=== PATIENT | female | born 1945 | race Caucasian/White ===

== ENCOUNTER 2016-12-22 10:35 | Outpatient (CLI) | payer BC, MEDICARE | END 2016-12-22 10:36 | disposition home or self-care (01) | DX: J02.9 Acute pharyngitis, unspecified (principal) ==

== ENCOUNTER 2017-07-17 10:57 | Outpatient (CLI) | payer MEDICARE ==
[2017-07-17 11:32] LABS: BASOPHILS # (AUTO) 0.1 10^3/uL (0.0-0.1); EOSINOPHILS # (AUTO) 0.2 10^3/uL (0.0-0.7); EOSINOPHILS % (AUTO) 2.8 %; HCT - HEMATOCRIT 36.7 % (37.0-47.0); HGB - HEMOGLOBIN 12.2 g/dL (12.0-16.0); LYMPHOCYTES # (AUTO) 1.9 10^3/uL (1.5-3.5); LYMPHOCYTES % (AUTO) 33.4 %; MEAN CORPUSCULAR HGB CONC 33.3 g/dL (32.0-36.0); MEAN CORPUSCULAR VOLUME 90.1 fL (81.0-99.0); MEAN PLATELET VOLUME 7.4 fL (7.9-10.8); MONOCYTES # (AUTO) 0.5 10^3/uL (0.0-1.0); MONOCYTES % (AUTO) 8.5 %; NEUTROPHILS # (AUTO) 3.2 10^3/uL (1.5-6.6); NEUTROPHILS % (AUTO) 54.3 %; RED BLOOD COUNT 4.08 10^6/uL (4.20-5.40); RED CELL DISTRIBUTION WIDTH 13.9 % (12.0-15.0); UNCORRECTED WHITE BLOOD COUNT 5.8 x10^3/uL; WHITE BLOOD COUNT 5.8 x10^3/uL (4.8-10.8)
[2017-07-17 11:50] LABS: ALBUMIN/GLOBULIN RATIO 1.3 (1.0-2.2); BILIRUBIN,TOTAL 0.8 mg/dL (0.2-1.0); BUN - BLOOD UREA NITROGEN 17 mg/dL (6-20); CALCIUM 9.4 mg/dL (8.5-10.3); CARBON DIOXIDE - CO2 27 mmol/L (21-32); CHLORIDE 104 mmol/L (101-111); CHOL/HDL RATIO 4.2 (<4.4); CHOLESTEROL 262 mg/dL; CREATININE 1.1 mg/dL (0.4-1.0); GFR - MDRD 49 (>89); GLUCOSE 99 mg/dL (70-100); HDL CHOLESTEROL 62 mg/dL; LDL/HDL RATIO 2.9 (<4.4); POTASSIUM 4.4 mmol/L (3.5-5.0); SODIUM 139 mmol/L (135-145); TOTAL PROTEIN 7.2 g/dL (6.7-8.2); TRIGLYCERIDES 109 mg/dL; VLDL CHOLESTEROL 22 mg/dL
== END 2017-07-17 10:58 | disposition home or self-care (01) ==
LOC: LAB 10:57
PROVIDERS: ATTEND Internal Medicine
DX: M47.9 Spondylosis, unspecified (principal); E78.5 Hyperlipidemia, unspecified; J45.909 Unspecified asthma, uncomplicated; E03.9 Hypothyroidism, unspecified
CPT/HCPCS: 36415; 80053; 80061; 84443; 85025

== ENCOUNTER 2017-07-22 12:34 | Outpatient (CLI) | payer MEDICARE ==
--- NOTE | 2017-07-23 11:32 | Mammography Report ---
DIGITAL BILATERAL SCREENING MAMMOGRAPHY: 07/22/2017 COMPARISON: 07/22/2016, 07/13/2015, 06/30/2014, 06/22/2013, 05/18/2012, 05/08/2011, 03/07/2010, 06/2009, and 01/28/2008. TECHNIQUE: Bilateral digital CC and MLO projections. FINDINGS: Scattered fibroglandular densities are present. No dominant mass, architectural distortio n, skin thickening, suspicious microcalcifications, or interval change. IMPRESSION: NEGATIVE. BIRADS CATEGORY 1. SUGGEST ROUTINE FOLLOWUP IN 12 MONTHS. STANDARD QUALIFYING STATEMENTS 1. This examination was reviewed with the aid of Computer-Aided Detection (CAD). 2. A negative or benign imaging report should not delay biopsy if clinically suspicious findings are present. Consider surgical consultation if warranted. More than 5% of cancers are not identified by i maging. 3. Dense breasts may obscure an underlying neoplasm. JOB #: [id number] EXT JOB #:[id number]
== END 2017-07-22 12:35 | disposition home or self-care (01) ==
LOC: DI 12:34
PROVIDERS: ATTEND Internal Medicine
DX: Z12.31 Encounter for screening mammogram for malignant neoplasm of breast (principal)
CPT/HCPCS: 77067

== ENCOUNTER 2018-02-25 09:11 | Outpatient (CLI) | payer MEDICARE ==
--- NOTE | 2018-02-25 14:31 | XRAY Report ---
TWO VIEW CHEST: 02/25/2018 CLINICAL INDICATION: Viral upper respiratory infection, asthma, weakness, cough, pain. COMPARISON: Two view chest 01/06/2014, chest CT 11/21/2014. FINDINGS: Frontal and lateral views of the chest demonstrate a normal cardiac silhouette. The lungs are clear. No infiltrate, effusion, or pneumothorax is seen. IMPRESSION: NORMAL CHEST, UNCHANGED. TD: 02/25/2018 14:30
== END 2018-02-25 09:12 | disposition home or self-care (01) ==
LOC: DI 09:11
PROVIDERS: ATTEND Internal Medicine
DX: J06.9 Acute upper respiratory infection, unspecified (principal); J45.909 Unspecified asthma, uncomplicated
CPT/HCPCS: 71046

== ENCOUNTER 2018-07-27 10:47 | Outpatient (CLI) | payer MEDICARE ==
[2018-07-27 17:51] LABS: BASOPHILS % (AUTO) 0.7 %; EOSINOPHILS # (AUTO) 0.1 10^3/uL (0.0-0.7); EOSINOPHILS % (AUTO) 2.2 %; HGB - HEMOGLOBIN 12.5 g/dL (12.0-16.0); LYMPHOCYTES # (AUTO) 1.8 10^3/uL (1.5-3.5); LYMPHOCYTES % (AUTO) 29.8 %; MEAN CORPUSCULAR HEMOGLOBIN 30.3 pg (27.0-31.0); MEAN CORPUSCULAR HGB CONC 33.6 g/dL (32.0-36.0); MEAN CORPUSCULAR VOLUME 90.3 fL (81.0-99.0); MEAN PLATELET VOLUME 9.6 fL (7.9-10.8); MONOCYTES # (AUTO) 0.5 10^3/uL (0.0-1.0); MONOCYTES % (AUTO) 8.5 %; NEUTROPHILS # (AUTO) 3.6 10^3/uL (1.5-6.6); NEUTROPHILS % (AUTO) 58.8 %; PLT - PLATELET COUNT 328 10^3/uL (130-450); RED BLOOD COUNT 4.11 10^6/uL (4.20-5.40); RED CELL DISTRIBUTION WIDTH 14.1 % (12.0-15.0); WHITE BLOOD COUNT 6.1 x10^3/uL (4.8-10.8)
[2018-07-27 18:25] LABS: ALBUMIN 4.2 g/dL (3.2-5.5); ALBUMIN/GLOBULIN RATIO 1.4 (1.0-2.2); ALKALINE PHOSPHATASE 57 IU/L (42-121); ALT ALANINE AMINOTRANSFERASE 16 IU/L (10-60); AST ASPARTATE AMINOTRANSFERASE 19 IU/L (10-42); BILIRUBIN,TOTAL 0.9 mg/dL (0.2-1.0); BUN - BLOOD UREA NITROGEN 16 mg/dL (6-20); CALCIUM 9.5 mg/dL (8.5-10.3); CARBON DIOXIDE - CO2 27 mmol/L (21-32); CHLORIDE 104 mmol/L (101-111); CHOL/HDL RATIO 3.6 (<4.4); CHOLESTEROL 246 mg/dL; GFR - MDRD 55 (>89); GLUCOSE 92 mg/dL (70-100); HDL CHOLESTEROL 68 mg/dL; LDL CHOLESTEROL,CALCULATED 151 mg/dL; LDL/HDL RATIO 2.2 (<4.4); SODIUM 139 mmol/L (135-145); TOTAL PROTEIN 7.1 g/dL (6.7-8.2); VLDL CHOLESTEROL 27 mg/dL
== END 2018-07-27 10:48 | disposition home or self-care (01) ==
LOC: LAB.F 10:47
PROVIDERS: ATTEND Internal Medicine
DX: E78.5 Hyperlipidemia, unspecified (principal); M81.0 Age-related osteoporosis without current pathological fracture; J45.909 Unspecified asthma, uncomplicated; E03.9 Hypothyroidism, unspecified
CPT/HCPCS: 36415; 80053; 80061; 83721; 84443; 85025

== ENCOUNTER 2018-09-15 10:36 | Outpatient (CLI) | payer MEDICARE ==
--- NOTE | 2018-09-15 17:20 | DEXA Report ---
Reason: OSTEOPOROSIS, SCREENING MAMMO Procedure Date: 09/15/2018 Accession Number: [id number] / [id number] Procedure: DEX - Dexa Spine and/or Hip CPT Code: FULL RESULT: EXAM: Dexa Spine and/or Hip DATE: 09/15/2018 11:05 AM CLINICAL HISTORY: OSTEOPOROSIS, SCREENING MAMMO TECHNIQUE: Dual energy x-ray absorptiometry (DXA) was performed on a Quick TV System. Regions measured are the AP Spine, femoral neck, and if needed forearm. COMPARISON: None. In accordance with the International Society for Clinical Densitometry (ISCD) guidelines, data from previous exams may be reanalyzed using current recommendations and techniques. This is done to allow a more accurate basis for comparison with the current study. FINDINGS: The data for the lumbar spine is as follows: BMD (g/cm/cm) T-SCORE Z-SCORE REGION L1 0.732 -3.3 -1.8 L2 0.711 -4.1 -2.6 L3 0.684 -4.3 -2.8 L4 0.780 -3.5 -2.0 TOTAL 0.728 -3.8 -2.3 NOTE: All evaluable vertebrae are used for classification The data for the hip is as follows: BMD (g/cm/cm) T-SCORE Z-SCORE REGION Neck 0.776 -1.9 -0.2 TOTAL 0.740 -2.1 -0.7 NOTE: The femoral neck or total proximal femur, whichever is lowest, is used for classification. DXA RESULTS SUMMARY: Spine SCAN DATE AGE BMD CHANGE VS CHANGE VS PREVIOUS PREVIOUS % 09/15/2018 [age] 0.728 -0.015 -2.0 09/02/2016 [age] 0[age]743 * Denotes significant change at the 95% confidence level. Denotes dissimilar scan types or analysis methods. DXA RESULTS SUMMARY: Hip SCAN DATE AGE BMD CHANGE VS CHANGE VS PREVIOUS PREVIOUS % 09/15/2018 73.4 0.740 -0.003 -0.4 09/02/2016 71.3 0.743 * Denotes significant change at the 95% confidence level. Denotes dissimilar scan types or analysis methods. IMPRESSION: THE WHO CLASSIFICATION BASED ON THE INTERNATIONAL REFERENCE STANDARD IS OSTEOPOROSIS. THE FRACTURE RISK IS HIGH. RECOMMENDATION: Patients with diagnosis of osteoporosis or osteopenia should have regular bone mineral density assessment. For those eligible for Medicare, routine testing is allowed once every 2 years. Testing frequency can be increased for patients who have rapidly progressing disease or for those who are receiving medical therapy to restore bone mass. COMMENT: World Health Organization (WHO) definitions for osteoporosis and osteopenia: NORMAL BMD: T-score at -1.0 or higher, fracture risk is low OSTEOPENIA BMD: T-score between -1.0 and -2.5, fracture risk is increased. OSTEOPOROSIS BMD: T-score at -2.5 or lower, fracture risk is high. National Osteoporosis Foundation recommends: 1. Obtain adequate dietary calcium (at least 1200 mg per day) and vitamin D (400-800 international units per day). 2. Participate, as appropriate, in regular weightbearing and muscle-strengthening exercise. 3. Avoid tobacco use and reduce alcohol and caffeine intake. 4. For more detailed information see the website at www.NOF.org.
== END 2018-09-15 10:37 | disposition home or self-care (01) ==
LOC: DI 10:36
PROVIDERS: ATTEND Internal Medicine
DX: M81.0 Age-related osteoporosis without current pathological fracture (principal); Z78.0 Asymptomatic menopausal state
CPT/HCPCS: 77080

== ENCOUNTER 2018-09-20 11:25 | Outpatient (CLI) | payer MEDICARE ==
--- NOTE | 2018-09-21 09:09 | Mammography Report ---
Reason: ANNUAL SCREENING Procedure Date: 09/20/2018 Accession Number: [id number] / [id number] Procedure: MARIA ISABEL - Screening Mammo w/Crow CPT Code: FULL RESULT: EXAM: Screening Mammo w/Crow DATE: 09/20/2018 12:37 PM CLINICAL HISTORY: 73-year-old female with history of biopsy in 1999 and family history of breast cancer in the mother in her 70s. The patient is here for screening. TECHNIQUE: Bilateral CC and MLO views were obtained. COMPARISON: 07/22/2017, 07/22/2016, 07/13/2015, 06/30/2014. FINDINGS: The breasts demonstrate diffuse fatty replacement bilaterally. There are typically benign coarse right breast calcifications. No suspicious masses, clustered microcalcifications, or regions of architectural distortion are identified. IMPRESSION: Benign findings RECOMMENDATION: Routine annual screening unless otherwise clinically indicated. BIRADS CATEGORY 2: Benign findings STANDARD QUALIFYING STATEMENTS: 1. This examination was not reviewed with the aid of Computer-Aided Detection (CAD). 2. A negative or benign imaging report should not delay biopsy if clinically suspicious findings are present. Consider surgical consultation if warranted. More than 5% of cancers are not identified by imaging. 3. Dense breasts may obscure an underlying neoplasm. 4. This examination was reviewed with the aid of 3D breast imaging (tomosynthesis).
== END 2018-09-20 11:26 | disposition home or self-care (01) ==
LOC: DI 11:25
PROVIDERS: ATTEND Internal Medicine
DX: Z12.31 Encounter for screening mammogram for malignant neoplasm of breast (principal); Z80.3 Family history of malignant neoplasm of breast
CPT/HCPCS: 77063; 77067

== ENCOUNTER 2019-05-16 14:33 | Outpatient (CLI) | payer MEDICARE ==
[2019-05-16 15:20] LABS: BASOPHILS # (AUTO) 0.1 10^3/uL (0.0-0.1); BASOPHILS % (AUTO) 0.7 %; EOSINOPHILS # (AUTO) 0.2 10^3/uL (0.0-0.7); EOSINOPHILS % (AUTO) 3.4 %; HGB - HEMOGLOBIN 11.4 g/dL (12.0-16.0); LYMPHOCYTES # (AUTO) 2.4 10^3/uL (1.5-3.5); LYMPHOCYTES % (AUTO) 33.5 %; MEAN CORPUSCULAR HEMOGLOBIN 31.8 pg (27.0-31.0); MEAN CORPUSCULAR HGB CONC 31.5 g/dL (32.0-36.0); MEAN CORPUSCULAR VOLUME 101.1 fL (81.0-99.0); MEAN PLATELET VOLUME 9.9 fL (7.9-10.8); MONOCYTES # (AUTO) 0.7 10^3/uL (0.0-1.0); MONOCYTES % (AUTO) 9.1 %; NEUTROPHILS # (AUTO) 3.8 10^3/uL (1.5-6.6); PLT - PLATELET COUNT 292 10^3/uL (130-450); RED BLOOD COUNT 3.58 10^6/uL (4.20-5.40); RED CELL DISTRIBUTION WIDTH 13.3 % (12.0-15.0); WHITE BLOOD COUNT 7.1 x10^3/uL (4.8-10.8)
[2019-05-16 15:21] LABS: ALBUMIN 4.1 g/dL (3.2-5.5); ALBUMIN/GLOBULIN RATIO 1.4 (1.0-2.2); BILIRUBIN,TOTAL 0.4 mg/dL (0.2-1.0); CALCIUM 9.3 mg/dL (8.5-10.3); TOTAL PROTEIN 7.1 g/dL (6.7-8.2)
[2019-05-16 15:56] LABS: THYROID STIMULATING HORMONE 0.89 uIU/mL (0.34-5.60)
[2019-05-16 15:59] LABS: FREE T4 (FREE THYROXINE) 1.16 ng/dL (0.58-1.64)
== END 2019-05-16 14:34 | disposition home or self-care (01) ==
LOC: LAB 14:33
PROVIDERS: ATTEND Family Medicine
DX: G56.00 Carpal tunnel syndrome, unspecified upper limb (principal); E03.9 Hypothyroidism, unspecified; J45.998 Other asthma
CPT/HCPCS: 36415; 80053; 84439; 84443; 84481; 85025

== ENCOUNTER 2019-08-29 14:05 | Outpatient (CLI) | payer MEDICARE | END 2019-08-29 23:59 | disposition home or self-care (01) | LOC: LAB.R 14:05 | PROVIDERS: ATTEND Family Medicine | DX: E78.5 Hyperlipidemia, unspecified (principal); R00.2 Palpitations; E03.9 Hypothyroidism, unspecified; N39.0 Urinary tract infection, site not specified | CPT/HCPCS: 87077; 87086; 87181 ==

== ENCOUNTER 2019-08-29 15:19 | Outpatient (CLI) | payer MEDICARE ==
[2019-08-29 15:49] LABS: BASOPHILS # (AUTO) 0.1 10^3/uL (0.0-0.1); BASOPHILS % (AUTO) 0.7 %; EOSINOPHILS # (AUTO) 0.2 10^3/uL (0.0-0.7); HGB - HEMOGLOBIN 11.6 g/dL (12.0-16.0); LYMPHOCYTES # (AUTO) 2.9 10^3/uL (1.5-3.5); LYMPHOCYTES % (AUTO) 37.8 %; MEAN CORPUSCULAR HEMOGLOBIN 32.7 pg (27.0-31.0); MEAN CORPUSCULAR HGB CONC 31.9 g/dL (32.0-36.0); MEAN CORPUSCULAR VOLUME 102.5 fL (81.0-99.0); MEAN PLATELET VOLUME 9.7 fL (7.9-10.8); MONOCYTES # (AUTO) 0.7 10^3/uL (0.0-1.0); MONOCYTES % (AUTO) 9.1 %; NEUTROPHILS # (AUTO) 3.7 10^3/uL (1.5-6.6); NEUTROPHILS % (AUTO) 49.1 %; PLT - PLATELET COUNT 327 10^3/uL (130-450); RED BLOOD COUNT 3.55 10^6/uL (4.20-5.40); RED CELL DISTRIBUTION WIDTH 13.4 % (12.0-15.0); WHITE BLOOD COUNT 7.6 x10^3/uL (4.8-10.8)
[2019-08-29 16:05] LABS: ALBUMIN 4.2 g/dL (3.2-5.5); ALBUMIN/GLOBULIN RATIO 1.4 (1.0-2.2); BILIRUBIN,TOTAL 0.6 mg/dL (0.2-1.0); CALCIUM 9.5 mg/dL (8.5-10.3); TOTAL PROTEIN 7.3 g/dL (6.7-8.2)
[2019-08-29 16:37] LABS: THYROID STIMULATING HORMONE 0.72 uIU/mL (0.34-5.60)
[2019-08-29 16:39] LABS: FREE T4 (FREE THYROXINE) 1.19 ng/dL (0.58-1.64)
== END 2019-08-29 15:20 | disposition home or self-care (01) ==
LOC: LAB 15:19
PROVIDERS: ATTEND Family Medicine
DX: E78.5 Hyperlipidemia, unspecified (principal); R00.2 Palpitations; N39.0 Urinary tract infection, site not specified; E03.9 Hypothyroidism, unspecified
CPT/HCPCS: 36415; 80053; 84439; 84443; 84481; 85025; 87086

== ENCOUNTER 2019-10-06 10:47 | Outpatient (CLI) | payer MEDICARE ==
--- NOTE | 2019-10-06 15:54 | Ultrasound Report ---
Reason: BURNING ON URINATION, FREQUENCY OF URINATION, UTI Procedure Date: 10/06/2019 Accession Number: [id number] / [id number] Procedure: US - Retroperitoneal CPT Code: Final Report FULL RESULT: EXAM: RENAL ULTRASOUND EXAM DATE: 10/06/2019 11:43 AM. CLINICAL HISTORY: BURNING ON URINATION, FREQUENCY OF URINATION, UTI. COMPARISON: ABDOMEN/PELVIS W/O 04/25/2016 10:43 AM. TECHNIQUE: Real-time scanning was performed with static images obtained. FINDINGS: Right Kidney: 9.1 x 5.3 x 4.9 cm. Extrarenal pelvis with possible hydronephrosis. No calcification. Left Kidney: 9.7 x 5.1 x 6.4 cm. Normal echotexture with no stones, contour-deforming masses, or hydronephrosis. Bladder: Bilateral jets seen. The prevoid bladder volume was 111 cc. The postvoid bladder volume was 8.3 cc. Other: None. IMPRESSION: 1. Right kidney has an extrarenal pelvis with possible hydronephrosis. RADIA
== END 2019-10-06 10:48 | disposition home or self-care (01) ==
LOC: DI 10:47
PROVIDERS: ATTEND Family Medicine
DX: N39.0 Urinary tract infection, site not specified (principal); R10.9 Unspecified abdominal pain; R30.9 Painful micturition, unspecified; R35.0 Frequency of micturition
CPT/HCPCS: 76770

== ENCOUNTER 2019-12-20 07:00 | Outpatient (CLI) | payer MEDICARE | END 2019-12-20 23:59 | disposition home or self-care (01) | LOC: LAB.R 07:00 | PROVIDERS: ATTEND Family Medicine | DX: N39.0 Urinary tract infection, site not specified (principal) | CPT/HCPCS: 87086 ==

== ENCOUNTER 2020-05-01 15:19 | Outpatient (CLI) | payer MEDICARE ==
[2020-05-01 18:19] LABS: BASOPHILS # (AUTO) 0.1 10^3/uL (0.0-0.1); BASOPHILS % (AUTO) 0.9 %; EOSINOPHILS # (AUTO) 0.2 10^3/uL (0.0-0.7); EOSINOPHILS % (AUTO) 3.1 %; HGB - HEMOGLOBIN 12.3 g/dL (12.0-16.0); LYMPHOCYTES # (AUTO) 2.3 10^3/uL (1.5-3.5); LYMPHOCYTES % (AUTO) 33.3 %; MEAN CORPUSCULAR HEMOGLOBIN 32.5 pg (27.0-31.0); MEAN CORPUSCULAR HGB CONC 31.8 g/dL (32.0-36.0); MEAN CORPUSCULAR VOLUME 102.4 fL (81.0-99.0); MEAN PLATELET VOLUME 11.1 fL (7.9-10.8); MONOCYTES # (AUTO) 0.8 10^3/uL (0.0-1.0); MONOCYTES % (AUTO) 10.9 %; NEUTROPHILS # (AUTO) 3.6 10^3/uL (1.5-6.6); NEUTROPHILS % (AUTO) 51.5 %; PLT - PLATELET COUNT 343 10^3/uL (130-450); RED BLOOD COUNT 3.78 10^6/uL (4.20-5.40); RED CELL DISTRIBUTION WIDTH 13.4 % (12.0-15.0)
[2020-05-01 18:42] LABS: ALBUMIN 4.3 g/dL (3.2-5.5); ALBUMIN/GLOBULIN RATIO 1.5 (1.0-2.2); BILIRUBIN,TOTAL 0.6 mg/dL (0.2-1.0); CALCIUM 9.3 mg/dL (8.5-10.3); TOTAL PROTEIN 7.1 g/dL (6.7-8.2)
[2020-05-01 18:43] LABS: THYROID STIMULATING HORMONE 0.93 uIU/mL (0.34-5.60)
[2020-05-01 18:45] LABS: FREE T4 (FREE THYROXINE) 1.17 ng/dL (0.58-1.64)
[2020-05-01 18:46] LABS: FREE T3 3.37 pg/mL (2.5-3.9)
[2020-05-01 18:52] LABS: FERRITIN 28.3 ng/mL (11.0-306.8)
[2020-05-01 18:54] LABS: FOLATE 20.6 ng/mL (5.90 - >24.8)
== END 2020-05-01 23:59 | disposition home or self-care (01) ==
LOC: LAB.WCP 15:19
PROVIDERS: ATTEND Family Medicine
DX: E03.9 Hypothyroidism, unspecified (principal); D64.9 Anemia, unspecified; R00.2 Palpitations; J45.909 Unspecified asthma, uncomplicated; N81.89 Other female genital prolapse
CPT/HCPCS: 36415; 80053; 82607; 82728; 82746; 83540; 84439; 84443; 84466; 84481; 85025

== ENCOUNTER 2020-07-06 08:00 | Outpatient (CLI) | payer MEDICARE | END 2020-07-06 23:59 | disposition home or self-care (01) | LOC: LAB.R 08:00 | PROVIDERS: ATTEND Family Medicine | DX: N39.0 Urinary tract infection, site not specified (principal) | CPT/HCPCS: 87086; 87181 ==

== ENCOUNTER 2020-07-24 14:41 | Outpatient (CLI) | payer MEDICARE ==
[2020-07-24 15:10] LABS: BASOPHILS # (AUTO) 0.1 10^3/uL (0.0-0.1); BASOPHILS % (AUTO) 0.7 %; EOSINOPHILS # (AUTO) 0.3 10^3/uL (0.0-0.7); EOSINOPHILS % (AUTO) 3.9 %; HGB - HEMOGLOBIN 11.5 g/dL (12.0-16.0); LYMPHOCYTES # (AUTO) 2.4 10^3/uL (1.5-3.5); LYMPHOCYTES % (AUTO) 32.6 %; MEAN CORPUSCULAR HEMOGLOBIN 31.9 pg (27.0-31.0); MEAN CORPUSCULAR HGB CONC 31.2 g/dL (32.0-36.0); MEAN CORPUSCULAR VOLUME 102.2 fL (81.0-99.0); MEAN PLATELET VOLUME 10.2 fL (7.9-10.8); MONOCYTES # (AUTO) 0.7 10^3/uL (0.0-1.0); NEUTROPHILS # (AUTO) 3.8 10^3/uL (1.5-6.6); NEUTROPHILS % (AUTO) 52.5 %; PLT - PLATELET COUNT 299 10^3/uL (130-450); RED BLOOD COUNT 3.61 10^6/uL (4.20-5.40); WHITE BLOOD COUNT 7.3 x10^3/uL (4.8-10.8)
[2020-07-24 15:27] LABS: ALBUMIN 3.8 g/dL (3.2-5.5); ALBUMIN/GLOBULIN RATIO 1.4 (1.0-2.2); ALKALINE PHOSPHATASE 53 IU/L (42-121); ALT ALANINE AMINOTRANSFERASE 16 IU/L (10-60); AST ASPARTATE AMINOTRANSFERASE 19 IU/L (10-42); BILIRUBIN,TOTAL 0.7 mg/dL (0.2-1.0); BUN - BLOOD UREA NITROGEN 17 mg/dL (6-20); CALCIUM 9.5 mg/dL (8.5-10.3); CARBON DIOXIDE - CO2 27 mmol/L (21-32); CHLORIDE 103 mmol/L (101-111); CHOLESTEROL 252 mg/dL; CREATININE 1.1 mg/dL (0.4-1.0); GLUCOSE 100 mg/dL (70-100); HDL CHOLESTEROL 63 mg/dL; LDL CHOLESTEROL,CALCULATED 151 mg/dL; LDL/HDL RATIO 2.4 (<4.4); SODIUM 138 mmol/L (135-145); TOTAL PROTEIN 6.6 g/dL (6.7-8.2); VLDL CHOLESTEROL 38 mg/dL
== END 2020-07-24 14:42 | disposition home or self-care (01) ==
LOC: LAB 14:41
PROVIDERS: ATTEND Family Medicine
DX: D64.9 Anemia, unspecified (principal); N39.0 Urinary tract infection, site not specified; N13.9 Obstructive and reflux uropathy, unspecified; K21.0 Gastro-esophageal reflux disease with esophagitis; R00.2 Palpitations; N32.81 Overactive bladder; G47.00 Insomnia, unspecified; M15.9 Polyosteoarthritis, unspecified
CPT/HCPCS: 36415; 80053; 80061; 83721; 84443; 85025; 87086; 87181

== ENCOUNTER 2020-09-11 13:58 | Outpatient (CLI) | payer MEDICARE ==
--- NOTE | 2020-09-12 13:52 | Mammography Report ---
BILATERAL DIGITAL SCREENING MAMMOGRAM 3D/2D: 09/11/2020 CLINICAL: Routine screening. Family history of breast cancer. Comparison is made to exams dated: 09/20/2018 mammogram, 07/22/2017 mammogram, 07/22/2016 mammogram, mammogram, 06/30/2014 mammogram, and 06/22/2013 mammogram - [facility]. The tissue of both breasts is predominantly fatty. No significant masses, calcifications, or other findings are seen in either breast. There has been no significant interval change. IMPRESSION: NEGATIVE There is no mammographic evidence of malignancy. A 1 year screening mammogram is recommended. This exam was interpreted at Station ID: [id number]. NOTE: For mammograms, a report in lay terms will be sent to the patient. Approximately 15% of breast malignancies will not be visualized mammographically. In the management of a palpable breast mass, a negative mammogram must not discourage biopsy of a clinically suspicious lesion. Electronically Signed By: Sukhi lutz/penrad:09/11/2020 15:55:11 ACR BI-RADS Category 1: Negative 3341F PARENCHYMAL PATTERN: (F) - The breast(s) demonstrate(s) diffuse fatty replacement. BI-RADS CATEGORY: (1) - 1 RECOMMENDATION: (ANNUAL) - Recommend routine annual screening mammography. [id number] 1 year screening LATERALITY: (B)
== END 2020-09-11 13:59 | disposition home or self-care (01) ==
LOC: DI 13:58
PROVIDERS: ATTEND Family Medicine
DX: Z12.31 Encounter for screening mammogram for malignant neoplasm of breast (principal); Z80.3 Family history of malignant neoplasm of breast
CPT/HCPCS: 77063; 77067

== ENCOUNTER 2020-10-23 13:36 | Outpatient (CLI) | payer MEDICARE ==
[2020-10-23 14:00] LABS: BASOPHILS % (AUTO) 0.5 %; EOSINOPHILS # (AUTO) 0.2 10^3/uL (0.0-0.7); EOSINOPHILS % (AUTO) 2.1 %; HGB - HEMOGLOBIN 12.1 g/dL (12.0-16.0); LYMPHOCYTES # (AUTO) 2.5 10^3/uL (1.5-3.5); MEAN CORPUSCULAR HEMOGLOBIN 32.6 pg (27.0-31.0); MEAN CORPUSCULAR HGB CONC 32.4 g/dL (32.0-36.0); MEAN CORPUSCULAR VOLUME 100.5 fL (81.0-99.0); MEAN PLATELET VOLUME 9.2 fL (7.9-10.8); MONOCYTES # (AUTO) 0.8 10^3/uL (0.0-1.0); MONOCYTES % (AUTO) 9.9 %; NEUTROPHILS # (AUTO) 4.3 10^3/uL (1.5-6.6); NEUTROPHILS % (AUTO) 55.4 %; PLT - PLATELET COUNT 283 10^3/uL (130-450); RED BLOOD COUNT 3.71 10^6/uL (4.20-5.40); RED CELL DISTRIBUTION WIDTH 12.6 % (12.0-15.0); WHITE BLOOD COUNT 7.7 x10^3/uL (4.8-10.8)
[2020-10-23 14:20] LABS: % IRON SATURATION 20 % (20-50); ALBUMIN/GLOBULIN RATIO 1.4 (1.0-2.2); ALKALINE PHOSPHATASE 60 IU/L (42-121); ALT ALANINE AMINOTRANSFERASE 18 IU/L (10-60); AST ASPARTATE AMINOTRANSFERASE 22 IU/L (10-42); BILIRUBIN,TOTAL 0.4 mg/dL (0.2-1.0); BUN - BLOOD UREA NITROGEN 18 mg/dL (6-20); CALCIUM 9.5 mg/dL (8.5-10.3); CARBON DIOXIDE - CO2 26 mmol/L (21-32); CHLORIDE 104 mmol/L (101-111); CHOL/HDL RATIO 4.3 (<4.4); CHOLESTEROL 243 mg/dL; GLUCOSE 101 mg/dL (70-100); HDL CHOLESTEROL 57 mg/dL; IRON 85 ug/dL (28-170); LDL CHOLESTEROL,CALCULATED 140 mg/dL; LDL/HDL RATIO 2.5 (<4.4); SODIUM 138 mmol/L (135-145); TOTAL IRON BINDING CAPACITY 434 ug/dL (250-450); TOTAL PROTEIN 6.8 g/dL (6.7-8.2); TRANSFERRIN 310 mg/dL (192-382); VLDL CHOLESTEROL 46 mg/dL
[2020-10-23 14:35] LABS: FERRITIN 48.3 ng/mL (11.0-306.8)
== END 2020-10-23 13:37 | disposition home or self-care (01) ==
LOC: LAB 13:36
PROVIDERS: ATTEND Family Medicine
DX: E53.8 Deficiency of other specified B group vitamins (principal); N13.9 Obstructive and reflux uropathy, unspecified; K21.00 Gastro-esophageal reflux disease with esophagitis, without bleeding; N81.89 Other female genital prolapse; D64.9 Anemia, unspecified; M47.9 Spondylosis, unspecified; E03.9 Hypothyroidism, unspecified
CPT/HCPCS: 36415; 80053; 80061; 82607; 82728; 83540; 83721; 84443; 84466; 85025

== ENCOUNTER 2021-04-22 12:35 | Outpatient (CLI) | payer MEDICARE ==
[2021-04-22 13:09] LABS: BUN - BLOOD UREA NITROGEN 14 mg/dL (6-20); CALCIUM 9.5 mg/dL (8.5-10.3); CARBON DIOXIDE - CO2 26 mmol/L (21-32); CHLORIDE 101 mmol/L (101-111); CHOL/HDL RATIO 3.3 (<4.4); CHOLESTEROL 235 mg/dL; CREATININE 1.1 mg/dL (0.4-1.0); GFR - MDRD 48 (>89); GLUCOSE 109 mg/dL (70-100); HDL CHOLESTEROL 71 mg/dL; LDL CHOLESTEROL,CALCULATED 139 mg/dL; POTASSIUM 4.4 mmol/L (3.5-5.0); SODIUM 138 mmol/L (135-145); TRIGLYCERIDES 127 mg/dL; VLDL CHOLESTEROL 25 mg/dL
[2021-04-22 13:34] LABS: ESTIMATED AVERAGE GLUCOSE 111 mg/dL (70-100); HEMOGLOBIN A1c% 5.5 % (4.27-6.07)
== END 2021-04-22 12:36 | disposition home or self-care (01) ==
LOC: LAB 12:35
PROVIDERS: ATTEND Family Medicine
DX: E78.5 Hyperlipidemia, unspecified (principal); E53.8 Deficiency of other specified B group vitamins; R73.9 Hyperglycemia, unspecified
CPT/HCPCS: 36415; 80048; 80061; 83036; 83721

== ENCOUNTER 2021-07-23 14:38 | Outpatient (CLI) | payer MEDICARE | END 2021-07-23 14:39 | disposition home or self-care (01) | LOC: LAB 14:38 | PROVIDERS: ATTEND Family Medicine | DX: N39.0 Urinary tract infection, site not specified (principal); Z53.9 Procedure and treatment not carried out, unspecified reason | CPT/HCPCS: 81001; 87086 ==

== ENCOUNTER 2021-07-24 10:09 | Outpatient (CLI) | payer MEDICARE ==
[2021-07-24 14:40] LABS: BASOPHILS # (AUTO) 0.1 10^3/uL (0.0-0.1); BASOPHILS % (AUTO) 0.9 %; EOSINOPHILS # (AUTO) 0.2 10^3/uL (0.0-0.7); EOSINOPHILS % (AUTO) 3.1 %; HCT - HEMATOCRIT 34.9 % (37.0-47.0); HGB - HEMOGLOBIN 11.2 g/dL (12.0-16.0); LYMPHOCYTES # (AUTO) 1.5 10^3/uL (1.5-3.5); LYMPHOCYTES % (AUTO) 25.6 %; MEAN CORPUSCULAR HEMOGLOBIN 30.9 pg (27.0-31.0); MEAN CORPUSCULAR HGB CONC 32.1 g/dL (32.0-36.0); MEAN CORPUSCULAR VOLUME 96.1 fL (81.0-99.0); MEAN PLATELET VOLUME 11.1 fL (7.9-10.8); MONOCYTES # (AUTO) 0.6 10^3/uL (0.0-1.0); MONOCYTES % (AUTO) 10.1 %; NEUTROPHILS # (AUTO) 3.5 10^3/uL (1.5-6.6); PLT - PLATELET COUNT 311 10^3/uL (130-450); RED BLOOD COUNT 3.63 10^6/uL (4.20-5.40); RED CELL DISTRIBUTION WIDTH 14.7 % (12.0-15.0); WHITE BLOOD COUNT 5.9 x10^3/uL (4.8-10.8)
[2021-07-24 14:41] LABS: CALCIUM 9.6 mg/dL (8.5-10.3); CREATININE 1.1 mg/dL (0.4-1.0); POTASSIUM 4.1 mmol/L (3.5-5.0)
== END 2021-07-24 10:10 | disposition home or self-care (01) ==
LOC: LAB.S 10:09
PROVIDERS: ATTEND Family Medicine
DX: E53.8 Deficiency of other specified B group vitamins (principal); K21.00 Gastro-esophageal reflux disease with esophagitis, without bleeding; N32.81 Overactive bladder; D64.9 Anemia, unspecified; N13.9 Obstructive and reflux uropathy, unspecified; N81.89 Other female genital prolapse; M47.9 Spondylosis, unspecified; E03.9 Hypothyroidism, unspecified
CPT/HCPCS: 36415; 80048; 82607; 82668; 85025

== ENCOUNTER 2021-07-26 16:08 | Outpatient (CLI) | payer MEDICARE ==
[2021-07-26 20:10] LABS: BILIRUBIN,URINE NEGATIVE (NEGATIVE); GLUCOSE, URINE (UA) NEGATIVE (NEGATIVE); KETONES,URINE (UA) NEGATIVE (NEGATIVE); LEUKOCYTE ESTERASE, URINE NEGATIVE (NEGATIVE); NITRITE,URINE NEGATIVE (NEGATIVE); OCCULT BLOOD,URINE NEGATIVE (NEGATIVE); PROTEIN,URINE NEGATIVE (NEGATIVE); UROBILINOGEN,URINE 0.2 (NORMAL) E.U./dL (NORMAL)
[2021-07-26 20:17] LABS: CLARITY,URINE CLEAR (CLEAR)
[2021-07-26 20:27] LABS: BACTERIA,URINE Rare /HPF (None Seen); RBC,URINE 0-5 /HPF (0-5); SQUAMOUS EPITHELIAL CELL,UR FEW Squamous (<= Few); WBC,URINE 0-3 /HPF (0-5)
== END 2021-07-26 16:09 | disposition home or self-care (01) ==
LOC: LAB.S 16:08
PROVIDERS: ATTEND Physician Assistant Medical
DX: R30.9 Painful micturition, unspecified (principal)
CPT/HCPCS: 81001; 87086

== ENCOUNTER 2021-09-25 11:16 | Outpatient (CLI) | payer MEDICARE ==
--- NOTE | 2021-09-27 08:54 | Mammography Report ---
BILATERAL DIGITAL SCREENING MAMMOGRAM 3D/2D: 09/25/2021 CLINICAL: Routine screening. Comparison is made to exams dated: 09/11/2020 mammogram, 09/20/2018 mammogram, 07/22/2017 mammogram, 07/22/2016 mammogram, 07/13/2015 mammogram, and 06/30/2014 mammogram - [facility]. Th e tissue of both breasts is predominantly fatty. No significant masses, calcifications, or other findings are seen in either breast. There has been no significant interval change. IMPRESSION: NEGATIVE There is no mammographic evidence of malignancy. A 1 year screening mammogram is recommended. This exam was interpreted at Station ID: [id number]. NOTE: For mammograms, a report in lay terms will be sent to the patient. Approximately 15% of breast malignancies will not be visualized mammographically. In the management of a palpable breast mass, a negative mammogram must not discourage biopsy of a clinically suspicious lesion. Electronically Signed By: Marcial Lou M.D., jr/maxi:09/25/2021 12:22:44 ACR BI-RADS Category 1: Negative 3341F PARENCHYMAL PATTERN: (F) - The breast(s) demonstrate(s) diffuse fatty replacement. BI-RADS CATEGORY: (1) - 1 RECOMMENDATION: (ANNUAL) - Recommend routine annual screening mammography. [id number] 1 year screening LATERALITY: (B)
== END 2021-09-25 11:17 | disposition home or self-care (01) ==
LOC: DI 11:16
PROVIDERS: ATTEND Family Medicine
DX: Z12.31 Encounter for screening mammogram for malignant neoplasm of breast (principal)

== ENCOUNTER 2021-10-22 09:54 | Outpatient (CLI) | payer MEDICARE ==
[2021-10-22 17:16] LABS: BASOPHILS # (AUTO) 0.1 10^3/uL (0.0-0.1); BASOPHILS % (AUTO) 0.9 %; EOSINOPHILS # (AUTO) 0.2 10^3/uL (0.0-0.7); EOSINOPHILS % (AUTO) 2.7 %; HCT - HEMATOCRIT 36.7 % (37.0-47.0); HGB - HEMOGLOBIN 11.5 g/dL (12.0-16.0); LYMPHOCYTES # (AUTO) 1.8 10^3/uL (1.5-3.5); LYMPHOCYTES % (AUTO) 31.5 %; MEAN CORPUSCULAR HEMOGLOBIN 31.2 pg (27.0-31.0); MEAN CORPUSCULAR HGB CONC 31.3 g/dL (32.0-36.0); MEAN CORPUSCULAR VOLUME 99.5 fL (81.0-99.0); MEAN PLATELET VOLUME 11.7 fL (7.9-10.8); MONOCYTES # (AUTO) 0.6 10^3/uL (0.0-1.0); MONOCYTES % (AUTO) 10.3 %; NEUTROPHILS # (AUTO) 3.2 10^3/uL (1.5-6.6); NEUTROPHILS % (AUTO) 54.4 %; PLT - PLATELET COUNT 317 10^3/uL (130-450); RED BLOOD COUNT 3.69 10^6/uL (4.20-5.40); RED CELL DISTRIBUTION WIDTH 13.9 % (12.0-15.0); WHITE BLOOD COUNT 5.8 x10^3/uL (4.8-10.8)
[2021-10-22 17:32] LABS: ALBUMIN 4.1 g/dL (3.2-5.5); ALBUMIN/GLOBULIN RATIO 1.4 (1.0-2.2); ALKALINE PHOSPHATASE 57 IU/L (42-121); ALT ALANINE AMINOTRANSFERASE 16 IU/L (10-60); AST ASPARTATE AMINOTRANSFERASE 19 IU/L (10-42); BILIRUBIN,TOTAL 0.8 mg/dL (0.2-1.0); BUN - BLOOD UREA NITROGEN 16 mg/dL (6-20); CALCIUM 9.2 mg/dL (8.5-10.3); CARBON DIOXIDE - CO2 26 mmol/L (21-32); CHLORIDE 104 mmol/L (101-111); CHOL/HDL RATIO 3.7 (<4.4); CHOLESTEROL 239 mg/dL; GFR - MDRD 54 (>89); GLUCOSE 96 mg/dL (70-100); HDL CHOLESTEROL 64 mg/dL; LDL CHOLESTEROL,CALCULATED 147 mg/dL; LDL/HDL RATIO 2.3 (<4.4); POTASSIUM 4.1 mmol/L (3.5-5.0); SODIUM 138 mmol/L (135-145); TRIGLYCERIDES 138 mg/dL; VLDL CHOLESTEROL 28 mg/dL
[2021-10-22 17:35] LABS: THYROID STIMULATING HORMONE 0.93 uIU/mL (0.34-5.60)
[2021-10-22 19:10] LABS: ESTIMATED AVERAGE GLUCOSE 111 mg/dL (70-100); HEMOGLOBIN A1c% 5.5 % (4.27-6.07)
== END 2021-10-22 09:55 | disposition home or self-care (01) ==
LOC: LAB.S 09:54
PROVIDERS: ATTEND Family Medicine
DX: R73.9 Hyperglycemia, unspecified (principal); K21.00 Gastro-esophageal reflux disease with esophagitis, without bleeding; E78.5 Hyperlipidemia, unspecified; E03.9 Hypothyroidism, unspecified; D64.9 Anemia, unspecified; M15.9 Polyosteoarthritis, unspecified
CPT/HCPCS: 36415; 80053; 80061; 83036; 83721; 84443; 85025

== ENCOUNTER 2022-01-09 10:46 | Outpatient (CLI) | payer MEDICARE ==
--- NOTE | 2022-01-09 11:09 | CARDIAC PROCEDURE NOTE ---
Stress Test Report Service Date: 01/09/22 Service Time: 11:00 Ordering Provider: Wilfred Patiño MD Indication for Test: Assess for an ischemic contirbution to exertional dyspnea and chest pressure. Significant Medical History: -Ellen reports a cluster of cardiovascular symptoms, that includes apparent heart palpitations (she describes as "rolling thunder"), exertional dyspnea, upper chest pressure, lightheadedness and fatigue. The symptoms have been present for a couple of years and in fact she was seen at Dr. Nair's cardiology clinic in January 2020 just prior to the onset of the Covid pandemic, where she underwent ambulatory monitoring with a Zio patch that she was told did not show any dysrhythmias. -Her symptom complex has gradually increased over the ensuing 2 years. She describes awakening in the mornings typically feeling reasonably refreshed, though she does describe fitful sleep. She does not describe heavy snoring or daytime sleepiness as possible clues to an RAMONA diagnosis. As she pursues physical activities she experiences some combination of the symptoms described above, primarily shortness of breath and fatigue, though at times with upper chest pressure-like discomfort and/or lightheadedness, as well. Her symptoms are relieved with a period of resting. 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 She describes doing a couple of hours of yard work yesterday, including mowing her small lawn with a push lawnmower. Other than some occasional left knee discomfort she does not have major orthopedic limitation and she reports being able to tolerate this level of exertion by pacing herself somewhat. Cardiac Risk Factors: Ellen has hyperlipidemia (untreated), but denies history of hypertension, diabetes and tobacco smoking ever; she is adopted and has no awareness of atherosclerotic disease in her family of origin. Type of Stress Test: ETT with Echocardiography Procedure: -Exercise Treadmill Test- After signing informed consent, the patient underwent resting echo imaging and then performed treadmill exercise using a Artie protocol. The patient exercised for 1 minute 46 bseconds and achieved a peak heart rate of 156 (107 percent predicted maximum heart rate for age), and an estimated workload of 4.2 METS. The test was terminated due to a precipitous increase in dyspnea, soon accompanied by upper chest pressure and marked lightheadedness. Resting heart rate: 83 Peak heart rate: 156 Abnormal response to exercise. Resting BP: 167/91 standing (note 123/74 supine) Peak BP: Due to truncated exercise time the next BP obtained after baseline standing was 156/91 at one minute into recovery. Hypertensive at baseline with abnormal BP response to exercise. Rhythm during exercise: Sinus rhythm throughout, with PACs occurring as isolated beats and PAC couplets, with rare PVC. Symptoms: As above; after stress echo images were obtained, patient described chest pressure remaining at 4/10 and NTG was requested from the pharmacy. Following its arrival a couple of minutes later the pressure was reported as 3/10 and a dose was given, which did not clearly hasten resolution of her chest pressure, but did result in marked lightheadedness. She was laid flat, BP recorded as 100/64 and her lightheadedness improved. She was given water and a small snack, with subsequent ability to be comfortable in a seated position, with repeat BP 106/62. EKG at rest showed normal sinus rhythm, normal in all aspects. EKG at peak stress showed ST depression >1.0 mm in leads II, III, aVF and V4-V5, meeting diagnostic EKG criteria for ischemia. Echo imaging performed at rest and with stress will be reported separately. IAntoine MD, was present throughout this treadmill stress study and supervised it in its entirety. Summary: 1) Severely reduced exercise tolerance as evidenced by failure to complete Artie protocol stage 1, with CARL estimated at 62.5%. 2) Normal resting EKG. 3) Per heart rate response an adequate level of exercise may have been achieved on this treadmill stress test, though rate x SBP product only 1.75-fold. 4) Abnormal BP response to exercise. 5) Ischemic changes by EKG criteria were seen at peak stress. 6) Echo image interpretation reveals normal left ventricular size, wall thickness and systolic function, but without appropriate hyperdynamic augmentation of all segments with exercise, likely due to inadequate level of stress achieved, or conceivably due to multivessel coronary disease. No significant valvular abnormality or elevation of estimated pulmonary artery systolic pressure on screening study. See separate report for more details. CONCLUSIONS: 1) Abnormal Artie protocol stress echocardiogram, failure to complete stage 1, positive recreation of symptoms and ST depression meeting diagnostic EKG criteria for ischemia. 2) Since the patient was previously evaluated by Dr. Nair, who I had just seen prior to this test in the [facility], I took the opportunity to review the findings with him and he agreed that given the marked abnormal response to treadmill stress protocol, further evaluation is likely appropriate. He is able to fit her in today for a further discussion of his recommendations. 3) Message left on the day of the test regarding the major results of this study with referring provider, Dr. Patiño.
[2022-01-09] MEDS ORDERED: NITROGLYCERIN SL 0.4 MG TABLET SL PRN ×2 (11:43→11:44)
== END 2022-01-09 10:47 | disposition home or self-care (01) ==
LOC: DI 10:46
PROVIDERS: ATTEND Family Medicine
DX: I25.9 Chronic ischemic heart disease, unspecified (principal); E78.5 Hyperlipidemia, unspecified
CPT/HCPCS: 93016; 93017; 93018; 93350

== ENCOUNTER 2022-06-02 09:33 | Outpatient (CLI) | payer MEDICARE ==
[2022-06-02 14:36] LABS: BASOPHILS % (AUTO) 0.6 %; EOSINOPHILS # (AUTO) 0.2 10^3/uL (0.0-0.7); EOSINOPHILS % (AUTO) 2.7 %; HCT - HEMATOCRIT 35.2 % (37.0-47.0); HGB - HEMOGLOBIN 11.2 g/dL (12.0-16.0); LYMPHOCYTES # (AUTO) 1.8 10^3/uL (1.5-3.5); MEAN CORPUSCULAR HEMOGLOBIN 31.9 pg (27.0-31.0); MEAN CORPUSCULAR HGB CONC 31.8 g/dL (32.0-36.0); MEAN CORPUSCULAR VOLUME 100.3 fL (81.0-99.0); MEAN PLATELET VOLUME 10.8 fL (7.9-10.8); MONOCYTES # (AUTO) 0.6 10^3/uL (0.0-1.0); MONOCYTES % (AUTO) 9.3 %; NEUTROPHILS # (AUTO) 3.8 10^3/uL (1.5-6.6); NEUTROPHILS % (AUTO) 59.2 %; PLT - PLATELET COUNT 336 10^3/uL (130-450); RED BLOOD COUNT 3.51 10^6/uL (4.20-5.40); WHITE BLOOD COUNT 6.3 x10^3/uL (4.8-10.8)
[2022-06-02 14:57] LABS: ALBUMIN 4.1 g/dL (3.2-5.5); ALBUMIN/GLOBULIN RATIO 1.4 (1.0-2.2); ALKALINE PHOSPHATASE 53 IU/L (42-121); ALT ALANINE AMINOTRANSFERASE 18 IU/L (10-60); AST ASPARTATE AMINOTRANSFERASE 21 IU/L (10-42); BUN - BLOOD UREA NITROGEN 14 mg/dL (6-20); CALCIUM 9.4 mg/dL (8.5-10.3); CARBON DIOXIDE - CO2 27 mmol/L (21-32); CHLORIDE 105 mmol/L (101-111); CHOL/HDL RATIO 3.8 (<4.4); CHOLESTEROL 230 mg/dL; CREATININE 0.9 mg/dL (0.4-1.0); GFR - MDRD 61 (>89); GLUCOSE 93 mg/dL (70-100); HDL CHOLESTEROL 61 mg/dL; LDL CHOLESTEROL,CALCULATED 145 mg/dL; LDL/HDL RATIO 2.4 (<4.4); POTASSIUM 4.4 mmol/L (3.5-5.0); SODIUM 138 mmol/L (135-145); TRIGLYCERIDES 118 mg/dL; VLDL CHOLESTEROL 24 mg/dL
[2022-06-02 15:03] LABS: THYROID STIMULATING HORMONE 0.86 uIU/mL (0.34-5.60)
[2022-06-02 20:26] LABS: ESTIMATED AVERAGE GLUCOSE 120 mg/dL (70-100); HEMOGLOBIN A1c% 5.8 % (4.27-6.07)
== END 2022-06-02 09:34 | disposition home or self-care (01) ==
LOC: LAB.S 09:33
PROVIDERS: ATTEND Family Medicine
DX: E03.9 Hypothyroidism, unspecified (principal); R06.09 Other forms of dyspnea; N18.31 Chronic kidney disease, stage 3a; R73.9 Hyperglycemia, unspecified; E53.8 Deficiency of other specified B group vitamins; G47.9 Sleep disorder, unspecified
CPT/HCPCS: 36415; 80053; 80061; 83036; 83721; 84443; 85025

== ENCOUNTER 2022-07-16 11:02 | Outpatient (CLI) | payer MEDICARE ==
[2022-07-16 12:09] VITALS: BP 130/70
--- NOTE | 2022-07-16 12:09 | SLEEP CARE CONSULTATION ---
Information from patient questionnaire entered by Giovani Cardenas. I have reviewed and concur with the information entered by Giovani Cardenas. This document represents the service I personally performed and the decisions made by me, Tracy Stacy ARNP. History of Present Illness Service Date and Time: 07/16/2022 1102 Reason for Visit: New patient Chief Complaint: reports: Unrefreshed sleep, Observed pauses in breathing Date of Onset: ? Usual bedtime: 10-1030AM Snores at night: No Observed to quit breathing while asleep: Yes Number of times waking at night: 2-3 Reasons for waking at night: reports: Gasping for air (sometimes feels like need to take a deep breath; usually in during day, not often), Pain, Bathroom. den ies: Choking, Snoring Toss, Turn, or Twitch while sleeping: Yes Recalls having dreams: No Usually gets out of bed at: 630-715 Feels refreshed in the morning: Yes (MORE YES THAN NO) Morning headache: No Sleepy or fatigued during the day: Yes (SOMETIMES) Ever fallen asleep while driving: No Takes day naps: No Prior sleep studies: No Additional HPI information: I had the pleasure of seeing VALERIE DANIELS today regarding the possibility of her having a sleep disorder. Her current complaint is observed pauses in breathing. She lives alone but she spent a night with her daughter who recorded her having pauses in breathing with a deep breath after the pause. She had taken 5 mg of Zolpidem that night so she could sleep. She states she is not a deep breather. She states she has been experiencing heart "flutters" and she passed out during her treadmill test. She was told that she does not have problems with heart. She has aortic arch calcifications. She states she can usually fall asleep within 20-30 minutes but sometimes she cannot fall asleep for 1-2 hours. She will wake up during the night 2-3 times a night. She is able to go back to sleep quickly after using bathroom. She is stage 3 kidney disease. - Parasomnia Symptoms Ever been unable to move upon waking from sleep: No Walks in sleep: No Ever acted out dreams in sleep: No Ever felt weak in the knees when startled or emotional: No Bothered by creepy, crawly, restless sensations in legs: Yes (PAIN/STINGING) Problems with memory or concentration: No Subjective Initial [place] Sleepiness Scale score: 3 (07/11/22) Past Medical History Past Medical History: reports: Arthritis, Hypothyroidism, Anemia, GERD, Other (OSTEOPOROSIS, KNEE INJECTIONS, STAGE 3A KIDNEY DISEASE, KYPHOSIS, COMPRESSED SPINE, AORTIC ARC CALCIFICATION; osteoporosis) Social History 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 Patient is Single and lives in [place]. Have you smoked in the past 12 months: No Alcohol use: Yes Alcohol amount and frequency: GLASS OF WINE OCCASIONALLY, LESS THAN 10 PER YEAR Caffeine use: Yes Caffeine amount and frequency: 1 COFFEE WITH CREAM DAILY Family History Family history of sleep disordered breathing: No (I am adopted) Allergies and Home Medications Known drug allergies: Yes Drug allergies reviewed: Yes (see list in chart) Home medication list reviewed: Yes Allergy and home medication list: Allergies metoclopramide HCl * [From Reglan] Allergy (Verified 10/19/14 10:42) Hallucinations shellfish derived Allergy (Verified 10/19/14 10:42) Anaphylaxis albuterol Adverse Reaction (Verified 10/19/14 10:42) Dizziness Sulfa (Sulfonamide Antibiotics) Adverse Reaction (Verified 10/19/14 10:42) Hallucinations Medications: Levothyroxine 0.75 mg daily Valacyclovir 500 mg daily Pepcid, 1 tab daily B-complex 1 daily [place] Fem-Dophilus 1 daily Nicol Apple Cider Vinegar gummy 1 daily Zolpidem 5 mg prn Cephalexin 500 mg 3 times a day if gets kidney infection Review of Systems Weight gain over past 5 years: (wgt does not fluctuate more than 3 pounds) Cardiovascular: reports: palpitations, leg or foot swelling (feels "tight" with tingling) Respiratory: reports: shortness of breath Gastrointestinal: reports: heartburn Urinary: reports: frequency, urgency Neurological: reports: fainting or unconsciousness (ONE TIME LAST SPRING DURING TREADMILL TEST ) Ear/Nose/Throat: reports: tonsillectomy, wisdom teeth removed Endocrine: reports: thyroid disease, too hot or cold, unexplained weakness Musculoskeletal: reports: joint pain, neck pain, back pain, joint swelling, muscle pain or cramping Immunologic: reports: itching, allergies to food or environment Physical Exam Vital signs obtained and entered by: BARRINGTON HANKINS Blood Pressure: 130/70 (LEFT ARM ) Cuff size: regular Heart Rate: 90 O2 Saturation: 97 Height: 5 ft 8 in Weight: 152 lb Body Mass Index: 23.1 BMI Classification: Healthy weight Neck circumference: 13 (INCHES) Mouth and throat: normal Soft palate: long Hard palate: normal Uvula: normal Uvula visualization: 50% Mallampati Class II Tongue: enlarged in size with teeth flores on lateral edges Tonsils: absent bilaterally Neck: normal w/o lymphadenopathy or thyromegaly Heart: regular rate and rhythm Lungs: clear bilaterally Impression and Plan 1. Suspected Obstructive Sleep Apnea-Hypopnea Syndrome, as suggested by a history of observed cessation of breath while asleep, gasping or choking in sleep and unrefreshed sleep. Narrow oropharynx and obesity are common predisposing factors for obstructive sleep apnea-hypopnea syndrome. I recommend proceeding to polysomnography to confirm the diagnosis and to assess severity. If the patient has significant sleep disordered breathing, a manual CPAP titration study will also be performed to find the optimal treatment pressure. I informed the patient of what the sleep studies involve and after some discussion, obtained agreement to proceed. The pathophysiology of obstructive sleep apnea-hypopnea syndrome was discussed with the patient and health risks of cardiovascular and cerebrovascular disease if not treated. 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 Patient agreed to plan. * Schedule polysomnography * Avoid long distance driving or driving when feeling sleepy. * Avoid alcohol, sedative and muscle relaxant around bedtime. * Maintain a healthy weight. * Review instructions provided by trained office staff on how to prepare for the sleep study. * Return for follow-up after sleep study completed. Counseling Topics: Weight control Visit Type: In Office Time Spent with Patient (minutes): 32 Provider Statement: I spent 100% of the Face to Face Visit with the patient with greater than 50% spent counseling the patient and coordination of care.
== END 2022-07-16 11:03 | disposition home or self-care (01) ==
LOC: SC 11:02
PROVIDERS: ATTEND Nurse Practitioner Family
DX: G47.8 Other sleep disorders (principal); R06.81 Apnea, not elsewhere classified
CPT/HCPCS: 99203; G0463; 99212

== ENCOUNTER 2022-09-02 12:25 | Outpatient (CLI) | payer MEDICARE | END 2022-09-02 12:26 | disposition home or self-care (01) | LOC: SC 12:25 | PROVIDERS: ATTEND Nurse Practitioner Family | DX: G47.33 Obstructive sleep apnea (adult) (pediatric) (principal); R09.02 Hypoxemia; R00.0 Tachycardia, unspecified | CPT/HCPCS: G0399 ×2; 95806 ==

== ENCOUNTER 2022-09-17 14:49 | Outpatient (CLI) | payer MEDICARE ==
[2022-09-17 15:27] VITALS: BP 122/70
--- NOTE | 2022-09-17 15:27 | SLEEP CARE CONSULTATION ---
Information from patient questionnaire entered by Mary Mejia. I have reviewed and concur with the information entered by Mary Mejia. This document represents the service I personally performed and the decisions made by , Tracy Stacy ARNP. History of Present Illness Service Date and Time: 09/17/2022 1449 Initial [place] Sleepiness Scale score: 3 (07/11/22) Current [place] Sleepiness Scale score: 3 (09/17/2022) Additional HPI information: VALERIE DANIELS returns for follow up and results of the recently performed home sleep study. I explained the pathophysiology behind obstructive sleep apnea. We then spent quite a bit of time discussing different treatment options. For mild obstructive sleep apnea, surgery and oral appliance are alternatives to nasal CPAP therapy but in moderate or severe cases, nasal CPAP is the most effective and reliable treatment. Because apnea is primarily in supine position, then positional management therapy could be effective. Methods discussed such as positioning with pillows to prevent supine sleep. After some discussion, the patient opted to go with the nasal CPAP therapy. Nasal autoCPAP set at 4-15 cmH20 will be ordered with rationale explained. A manual titration study will be ordered if unable to find optimal pressure with office adjustments. I explained how CPAP machine works and what to expect when using the machine. Using CPAP every night in order to get used to it was emphasized. Patient advised to put CPAP mask on before getting into bed so as not to fall asleep without CPAP. To assist acclimation to CPAP use, it could also be used for a short time during day while reading or watching TV. The patient was instructed to call the CPAP supplier to discuss any mechanical problem that may occur. If the mask given is uncomfortable or is difficult to keep on through the night even with adjustment, contact the CPAP supplier as many will replace with another mask style if notified before 30 days. If snoring or perceives is not getting enough air or too much air from the machine, notify this office. Patient was cautioned about risks of drowsy driving until sleepiness symptoms resolve. Sleep Study - Results Type of Sleep Study: Home sleep study (COMPLETED 09/02/2022) Prior sleep studies: No Polysomnography/Home Sleep Study results: Physician Impression: The quality of the study is good. The length of the study is adequate (> 240 minutes). Please also see the tabulated and graphic data. 1. Obstructive Sleep Apnea-Hypopnea (ICD-10 G47.33), moderate, with an AHI of 26.2/hr and thi SaO2 of 74%. During the study, the patient had 224 apneas (224 obstructive, 0 central, 0 mixed) and 5 hypopneas. The longest episode lasted 115.5 seconds. The respiratory events occurred more frequently during supine sleep (supine AHI was 45.3 and non-supine, 19.93). 2. Hypoxemia (ICD-10 R09.02), moderate, with the lowest oxygen saturation of 74 % and 123.5 minutes with SaO2 under 90%. Baseline oxygen saturation was normal (Average oxygen saturation was 93%). 3. Tachycardia, with maximum recorded heart rate of 176 beats per minute. Allergies and Home Medications Drug allergies reviewed: Yes (as listed in EMR) Home medication list reviewed: Yes (no changes) Review of Systems Review of systems same as previous: Yes (no changes) Physical Exam Vital signs obtained and entered by: MARY Caballero MA Blood Pressure: 122/70 (LEFT ARM) Cuff size: regular Heart Rate: 84 O2 Saturation: 97 Height: 5 ft 8 in Weight: 147 lb Body Mass Index: 22.3 BMI Classification: Normal Impression and Plan 1. Obstructive Sleep Apnea-Hypopnea Syndrome, moderate, with lowest oxygen saturation of 74%. Obviously this is the cause of the patients symptoms of unrefreshed sleep, and excessive daytime sleepiness. Positive pressure therapy could benefit gastric reflux. As mentioned above, the patient will be started o n nasal autoCPAP therapy with pressure set at 4-15 cmH2O. Compliance guidelines also reviewed. A copy of compliance guidelines will be given for reference at check out. Because the apnea is more severe supine, I instructed to avoid sleeping supine using pillow positioning until able to start CPAP use. 2. Hypoxemia, moderate, with the lowest oxygen saturation of 74 % and 123.5 minutes with SaO2 under 90%. Her baseline oxygen saturation was normal with an average oxygen saturation of 93%. 3. Tachycardia, with maximum recorded heart rate of 176 beats per minute noted during sleep study. Patient advised to follow up with PCP as needed for evaluation. * Nasal auto CPAP therapy, pressure at 4-15 cm H2O. * Avoid alcohol consumption near bedtime. * Avoid supine sleep until using CPAP. * The patient is again cautioned about driving until sleepiness completely resolves. * Return one month after CPAP obtained. I will assess response to therapy and compliance at that time. Visit Type: In Office Time Spent with Patient (minutes): 22 Provider Statement: I spent 100% of the Face to Face Visit with the patient with greater than 50% spent counseling the patient and coordination of care.
== END 2022-09-17 14:50 | disposition home or self-care (01) ==
LOC: SC 14:49
PROVIDERS: ATTEND Nurse Practitioner Family
DX: G47.33 Obstructive sleep apnea (adult) (pediatric) (principal); R09.02 Hypoxemia; R00.0 Tachycardia, unspecified
CPT/HCPCS: 99213; G0463; 99212

== ENCOUNTER 2022-11-11 13:06 | Outpatient (CLI) | payer MEDICARE ==
[2022-11-11 13:55] VITALS: BP 118/68
--- NOTE | 2022-11-11 13:55 | SLEEP CARE CONSULTATION ---
Information from patient questionnaire entered by Mary Mejia. I have reviewed and concur with the information entered by Mary Mejia. This document represents the service I personally performed and the decisions made by , Tracy Stacy ARNP. History of Present Illness Service Date and Time: 11/11/2022 1306 Previous diagnosis: Moderate, Obstructive Sleep Apnea-Hypopnea Syndrome AHI: 26.2 (in 2021) Reason for follow up: first compliance (SET UP 09/26/22) Equipment type: CPAP (RESMED Airsense 10; SD CARD NEEDED FOR DOWNLOAD AND CHANGES) Equipment obtained from: [employer] (got initial supplies) Mask style: Nasal pillows Mask brand: Resmed (Mckeon Judy Fx with ear loops) Backup mask available: Yes (other mask) Prior sleep studies: No Type of Sleep Study: Home sleep study (COMPLETED 09/02/2022) HPI additional information: VALERIE DANIELS was diagnosed to have moderate, AHI 26.2, obstructive sleep apnea-hypopnea syndrome and returned today for CPAP therapy first compliance follow-up. Sleep Study - Results Type of Sleep Study: Home sleep study (COMPLETED 09/02/2022) Prior sleep studies: No CPAP Compliance Data - Data Reviewed with Patient Average duration of nightly device use: 7 minutes Compliance rate %: 0 (2 days used) Current pressure setting (cmH2O): 4-15 Average residual AHI: 0 Subjective Missed days of use due to: reports: other (had severe pain when she used the mask for a short time (minutes)) Patient concerns: reports: mask discomfort, air blowing in eyes, condensation in mask/hose, dry mouth, nose, throat, other (acute pain nerves; acute reaction to cold). denies: aerophagia, mask leak noise, nasal congestion, epistaxis Observed to snore while using device: No Current pressure setting perceived as: too high On therapy, patient: reports: other (not able to use the CPAP) Initial [place] Sleepiness Scale score: 3 (07/11/22) Current [place] Sleepiness Scale score: 1 (11/11/2022) Allergies and Home Medications Drug allergies reviewed: Yes (as listed in EMR) Home medication list reviewed: Yes (no changes) Review of Systems Review of systems same as previous: Yes (no changes) Physical Exam Vital signs obtained and entered by: MARY Caballero MA Blood Pressure: 118/68 (LEFT ARM) Cuff size: regular Heart Rate: 88 O2 Saturation: 98 Height: 5 ft 8 in Weight: 144 lb 9.6 oz Body Mass Index: 21.9 BMI Classification: Normal Impression and Plan 1. Obstructive Sleep Apnea-Hypopnea Syndrome, moderate, with poor treatment compliance. 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 She states she tried the Judy Fx nasal pillows mask with some comfort but after just a few minutes of the air blowing through her nose she developed some pain. She stopped the CPAP and had migraine headache for two days after this incident. She changed the mask for a smaller cushion which was more comfortable but the pain in her nose with using the CPAP again was high. She states she does not feel she will be able to tolerate the CPAP pressure even in a full face mask with the pressure more disbursed. She cannot even tolerate air blowing on her from a fan. She would like to explore an evaluation by data deliverables manager because she gets short of breath during the day during normal activities. She thinks sometimes she is forgetting to breathe too. She wants to discontinue the CPAP at this time. She is aware that her severity of sleep apnea, moderate to severe, is best treated with the CPAP. Alternatives like surgery, including Inspire therapy, were discussed but she is not wanting to explore these options at this time. Patient's apnea severity and rationale for treatment to reduce apnea, improve sleep quality and reduce cardiovascular and cerebrovascular events was reviewed. I also reviewed the benefit of consistent device use of CPAP for gastric reflux. * Discontinue CPAP therapy * Call this office if any problems * Return for follow up when she is ready to continue treatment Visit Type: In Office Time Spent with Patient (minutes): 26 Provider Statement: I spent 100% of the Face to Face Visit with the patient with greater than 50% spent counseling the patient and coordination of care.
== END 2022-11-11 13:07 | disposition home or self-care (01) ==
LOC: SC 13:06
PROVIDERS: ATTEND Nurse Practitioner Family
DX: G47.33 Obstructive sleep apnea (adult) (pediatric) (principal)
CPT/HCPCS: 99213; G0463; 99212

== ENCOUNTER 2022-11-12 15:11 | Outpatient (CLI) | payer MEDICARE ==
--- NOTE | 2022-11-13 10:34 | Mammography Report ---
BILATERAL DIGITAL SCREENING MAMMOGRAM 3D/2D: 11/12/2022 CLINICAL: Routine screening. Family history of breast cancer. Comparison is made to exams dated: 09/11/2020 mammogram, 09/25/2021 mammogram, 09/20/2018 mammogram, 07/22/2017 mammogram, and 07/22/2016 mammogram - [facility]. Both breasts are almost entirely fatty (category a/<25% glandular tissue). No significant masses, calcifications, or other findings are seen in either breast. There has been no significant interval change. IMPRESSION: NEGATIVE There is no mammographic evidence of malignancy. A 1 year screening mammogram is recommended. Based on the Tyrer Cuzick model (a risk assessment model) the patients lifetime risk is 2.3% and her 10 year risk is 0.0%. According to the ACR, ACS, and NCCN guidelines, an annual breast MRI exam michelle g with mammogram is recommended if the patients lifetime risk is 20% or greater. This exam was interpreted at Station ID: [id number]. NOTE: For mammograms, a report in lay terms will be sent to the patient. Approximately 15% of breast malignancies will not be visualized mammographically. In the management of a palpable breast mass, a negative mammogram must not discourage biopsy of a clinically suspicious lesion. Electronically Signed By: Saji [email or web address]/maxi:11/13/2022 06:49:53 ACR BI-RADS Category 1: Negative 3341F PARENCHYMAL PATTERN: (F) - The breast(s) demonstrate(s) diffuse fatty replacement. BI-RADS CATEGORY: (1) - 1 RECOMMENDATION: (ANNUAL) - Recommend routine annual screening mammography. [id number] 1 year screening LATERALITY: (B)
== END 2022-11-12 15:12 | disposition home or self-care (01) ==
LOC: DI 15:11
DX: Z12.31 Encounter for screening mammogram for malignant neoplasm of breast (principal); Z80.3 Family history of malignant neoplasm of breast

== ENCOUNTER 2023-12-14 13:30 | Outpatient (CLI) | payer MEDICARE ==
--- NOTE | 2023-12-15 08:44 | Mammography Report ---
BILATERAL DIGITAL SCREENING MAMMOGRAM 3D/2D: 12/14/2023 CLINICAL: Routine screening. Comparison is made to exams dated: 11/12/2022 mammogram, 09/25/2021 mammogram, 09/11/2020 mammogram, 09/20/2018 mammogram, 07/22/2017 mammogram, and 07/22/2016 mammogram - [facility]. There are scattered areas of fibroglandular density in both breasts (category b / 25%-50% glandular t issue). No significant masses, calcifications, or other findings are seen in either breast. There has been no significant interval change. IMPRESSION: NEGATIVE There is no mammographic evidence of malignancy. A 1 year screening mammogram is recommended. Based on the Tyrer Cuzick model (a risk assessment model) the patient's lifetime risk is 3.2% and her 10 year risk is 0.0%. According to the ACR, ACS, and NCCN guidelines, an annual breast MRI exam michelle g with mammogram is recommended if the patient's lifetime risk is 20% or greater. This exam was interpreted at Station ID: [id number]. NOTE: For mammograms, a report in lay terms will be sent to the patient. Approximately 15% of breast malignancies will not be visualized mammographically. In the management of a palpable breast mass, a negative mammogram must not discourage biopsy of a clinically suspicious lesion. Electronically Signed By: Michael [email or web address]/maxi:12/14/2023 14:01:17 letter sent: No_Letter ACR BI-RADS Category 1: Negative 3341F PARENCHYMAL PATTERN: (A) - The breast(s) demonstrate(s) scattered fibroglandular densities. BI-RADS CATEGORY: (1) - 1 Mammogram [id number] 1 year screening LATERALITY: (B)
== END 2023-12-14 13:31 | disposition home or self-care (01) ==
LOC: DI 13:30
DX: Z12.31 Encounter for screening mammogram for malignant neoplasm of breast (principal); R92.323 Mammographic fibroglandular density, bilateral breasts

== ENCOUNTER 2024-06-29 10:55 | Outpatient (CLI) | payer MEDICARE ==
[2024-06-29 11:10] LABS: ABSOLUTE RETICS # AUTO 0.033 10^6/uL (0.020-0.110); BASOPHILS # (AUTO) 0.1 10^3/uL (0.0-0.1); BASOPHILS % (AUTO) 0.9 %; EOSINOPHILS # (AUTO) 0.2 10^3/uL (0.0-0.7); EOSINOPHILS % (AUTO) 2.9 %; HCT - HEMATOCRIT 36.7 % (37.0-47.0); HGB - HEMOGLOBIN 11.6 g/dL (12.0-16.0); LYMPHOCYTES # (AUTO) 1.7 10^3/uL (1.5-3.5); LYMPHOCYTES % (AUTO) 29.6 %; MEAN CORPUSCULAR HEMOGLOBIN 29.3 pg (27.0-31.0); MEAN CORPUSCULAR HGB CONC 31.6 g/dL (32.0-36.0); MEAN CORPUSCULAR VOLUME 92.7 fL (81.0-99.0); MEAN PLATELET VOLUME 9.4 fL (7.9-10.8); MONOCYTES # (AUTO) 0.5 10^3/uL (0.0-1.0); MONOCYTES % (AUTO) 8.9 %; NEUTROPHILS # (AUTO) 3.4 10^3/uL (1.5-6.6); NEUTROPHILS % (AUTO) 57.5 %; PLT - PLATELET COUNT 248 10^3/uL (130-450); RED BLOOD COUNT 3.96 10^6/uL (4.20-5.40); RED CELL DISTRIBUTION WIDTH 13.9 % (12.0-15.0); RETICULOCYTE COUNT % (AUTO) 0.84 % (0.5-2.3); WHITE BLOOD COUNT 5.8 x10^3/uL (4.8-10.8)
[2024-06-29 11:24] LABS: ALBUMIN/GLOBULIN RATIO 1.7 (1.0-2.2); BILIRUBIN,TOTAL 0.6 mg/dL (0.2-1.0); CALCIUM 9.3 mg/dL (8.5-10.3); CREATININE 0.9 mg/dL (0.6-1.3); POTASSIUM 4.3 mmol/L (3.5-4.5); TOTAL PROTEIN 6.4 g/dL (6.4-8.9)
[2024-06-29 11:38] LABS: ESTIMATED AVERAGE GLUCOSE 108 mg/dL (70-100); HEMOGLOBIN A1c% 5.4 % (4.27-6.07)
[2024-06-29 11:42] LABS: THYROID STIMULATING HORMONE 0.9 uIU/mL (0.34-5.60)
[2024-06-29 11:52] LABS: FERRITIN 37.1 ng/mL (11.0-306.8)
== END 2024-06-29 10:56 | disposition home or self-care (01) ==
LOC: LAB 10:55
PROVIDERS: ATTEND Family Medicine
DX: G60.9 Hereditary and idiopathic neuropathy, unspecified (principal); M19.90 Unspecified osteoarthritis, unspecified site; G47.30 Sleep apnea, unspecified; N18.31 Chronic kidney disease, stage 3a; R73.9 Hyperglycemia, unspecified; E03.9 Hypothyroidism, unspecified; D64.9 Anemia, unspecified
CPT/HCPCS: 36415; 80053; 82607; 82728; 82746; 83036; 83540; 84439; 84443; 84466; 84481; 85025; 85045